=== PATIENT | female | born 1980 | race Caucasian/White ===

== ENCOUNTER 2017-06-05 11:20 | Emergency (ER) | payer MEDICAID ==
[~2017-06-05] VITALS: Ht 170.2 cm; Wt 78.5 kg
[2017-06-05 11:46] VITALS: BP_SYST 102
[2017-06-05 14:01] VITALS: BP_SYST 102
== END 2017-06-05 14:01 | disposition home or self-care (01) ==
LOC: SED 11:20
DX: J20.9 Acute bronchitis, unspecified (principal); J45.909 Unspecified asthma, uncomplicated
CPT/HCPCS: 99283

== ENCOUNTER 2018-01-10 16:07 | Emergency (ER) | payer SELFPAY ==
[~2018-01-10] VITALS: Ht 170.2 cm; Wt 76.2 kg
[2018-01-10 16:23] VITALS: BP_SYST 131
== END 2018-01-10 17:00 | disposition left against medical advice (07) ==
LOC: SED 16:07
DX: R10.13 Epigastric pain (principal); R11.10 Vomiting, unspecified; J45.909 Unspecified asthma, uncomplicated; Z53.21 Procedure and treatment not carried out due to patient leaving prior to being seen by health care provider

== ENCOUNTER 2021-01-08 10:46 | Emergency (ER) | payer BC, MEDICAID, SELFPAY ==
[~2021-01-08] VITALS: Ht 170.2 cm; Wt 77.1 kg
[2021-01-08 11:05] VITALS: BP_SYST 102
--- NOTE | 2021-01-08 12:15 | NUR ---
IV HL 18 RT AC, NS INFUSION
[2021-01-08] MEDS: NACL 0.9% 1,000 ML IV ONE (12:18)
[2021-01-08] MEDS: ACETAMINOPHEN 500 MG TABLET PO ONE (12:20)
--- NOTE | 2021-01-08 12:25 | NUR ---
DR BERTRAND IN TO ASSESS
--- NOTE | 2021-01-08 12:46 | NUR ---
CXR COMPLETED , RESP UNLABORED, COMMUNICATES CLEARLY IN FULL COMPLETE SENTECES, FREQUENT DRY COUGH OBSERVED
[2021-01-08 13:08] LABS: BASOPHILS % (AUTO) 0.2 % (0.0-2.0); EOSINOPHILS % (AUTO) 0.1 % (0.0-4.0); HEMATOCRIT 35.8 % (36-48); HEMOGLOBIN 12.2 g/dL (12.0-16.0); LYMPHOCYTES # (AUTO) 0.4 K/uL (1.0-5.5); LYMPHOCYTES % (AUTO) 10.9 % (20.5-51.5); MEAN CORPUSCULAR HEMOGLOBIN 32 pg (27-31); MEAN CORPUSCULAR HGB CONC 34 % (32-36); MEAN CORPUSCULAR VOLUME 93 fL (79.0-98.0); MONOCYTES # (AUTO) 0.4 K/uL (0.0-1.0); MONOCYTES % (AUTO) 9.8 % (1.7-9.3); NEUTROPHILS # (AUTO) 3.3 K/uL (1.8-7.7); PLATELET COUNT (AUTO) 105 K/uL (130-430); RED BLOOD CELL COUNT(AUTO) 3.83 MIL/uL (4.2-6.2); RED CELL DISTRIBUTION WIDTH 12.7 % (9.0-15.0); WHITE BLOOD COUNT (AUTO) 4.1 K/uL (4.8-10.8)
[2021-01-08 13:13] LABS: CALCIUM 7.5 mg/dL (8.4-11.0); CREATININE 0.67 mg/dL (0.55-1.30); POTASSIUM 3.1 mmol/L (3.5-5.1)
[2021-01-08 13:17] LABS: ALBUMIN 2.6 g/dL (3.4-4.8); TOTAL BILIRUBIN 0.5 mg/dL (0.0-1.0)
[2021-01-08] MEDS ORDERED: ACET-2634 PO (14:04)
[2021-01-08] MEDS ORDERED: ZIT250 PO (14:04)
[2021-01-08] MEDS ORDERED: DIPH25CA83 PO (14:04)
[2021-01-08] MEDS ORDERED: ALBMDI INH (14:04)
[2021-01-08 14:30] VITALS: BP_SYST 121
--- NOTE | 2021-01-08 14:36 | NUR ---
Patient given written and verbal discharge instructions and verbalizes understanding. ER MD discussed with patient the results and treatment provided. Patient in stable condition. ID arm band removed. IV catheter removed intact and dressing applied, no active bleeding. Rx of TYLENOL. INHALER, Z-PACK, BENADRYL given. Patient educated on pain management and to follow up with PMD. Pain Scale 1/10 Opportunity for questions provided and answered. Medication side effect fact sheet provided.
== END 2021-01-08 14:36 | disposition home or self-care (01) ==
LOC: SED 10:46
DX: O98.511 Other viral diseases complicating pregnancy, first trimester (principal); U07.1 COVID-19; J20.9 Acute bronchitis, unspecified; J45.909 Unspecified asthma, uncomplicated; Z79.899 Other long term (current) drug therapy; Z3A.10 10 weeks gestation of pregnancy
CPT/HCPCS: 36415; 71045; 76801; 80053; 85025; 87426; 96360; 96361; 99285; J7030